=== PATIENT | female | born 2000 | race Caucasian/White ===

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

== ENCOUNTER 2021-02-26 08:26 | Emergency (ER) | payer OTHER ==
[~2021-02-26] VITALS: Ht 167.6 cm; Wt 117.9 kg
== END 2021-02-26 11:25 | disposition home or self-care (01) ==
LOC: EMR PED 08:26
DX: J06.9 Acute upper respiratory infection, unspecified (principal); Z20.822 Contact with and (suspected) exposure to COVID-19

== ENCOUNTER 2022-01-30 18:51 | Emergency (ER) | payer OTHER ==
[~2022-01-30] VITALS: Ht 152.4 cm; Wt 113.4 kg
[2022-01-30] MEDS ORDERED: BACTRIM DS TAB1 EACH PO (22:41)
[2022-01-30] MEDS ORDERED: ONDANSETRON ODT4 MG PO (22:41)
[2022-01-30] MEDS ORDERED: KETO10TA2 PO (22:41)
== END 2022-01-30 23:16 | disposition home or self-care (01) ==
LOC: EMR PED 18:51
DX: N39.0 Urinary tract infection, site not specified (principal)

== ENCOUNTER 2022-02-07 21:53 | Emergency (ER) | payer OTHER ==
[~2022-02-07] VITALS: Ht 170.2 cm; Wt 108.9 kg
[~2022-02-07 21:53] MED LIST changes: +BACTRIM DS TAB1 EACH PO; +KETO10TA2 PO; +ONDANSETRON ODT4 MG PO
== END 2022-02-08 01:03 | disposition home or self-care (01) ==
LOC: ER 21:53 → EMR PED 21:56
DX: N83.202 Unspecified ovarian cyst, left side (principal); Z91.011 Allergy to milk products

== ENCOUNTER 2022-12-21 18:49 | Emergency (ER) | payer OTHER ==
[~2022-12-21] VITALS: Ht 170.2 cm; Wt 117.9 kg
[2022-12-21 21:39] LABS: HEMATOCRIT 40.2 % (36.0-45.00); HEMOGLOBIN 13.4 g/dL (12.0-15.00); MEAN CELL VOLUME 92.5 fL (80.00-100.00); MEAN CORPUSCULAR HEMOGLOBIN 30.8 pg (27.00-32.0); MEAN CORPUSCULAR HGB CONC 33.3 g/dl (32.0-36.0); PLATELET COUNT 239 K/uL (150-450); RED BLOOD COUNT 4.35 M/uL (4.00-6.00); RED CELL DISTRIBUTION WIDTH 13.6 % (11.5-14.5)
[2022-12-21 21:53] LABS: CALCIUM 8.4 mg/dL (8.5-10.1); CREATININE SERUM 0.69 mg/dL (0.55-1.02); GFR 107.4; POTASSIUM 3.47 mEq/L (3.5-5.1)
[2022-12-21 22:18] LABS: PH,URINE 6.5 (5.0-8.0); URINE APPEARANCE Clear; URINE BILIRRUBIN Negative (NEGATIVE); URINE BLOOD Negative; URINE COLOR Yellow; URINE GLUCOSE Negative (NEGATIVE); URINE LEUKOCYTE Moderate; URINE NITRATE Negative; URINE PROTEIN Negative (NEGATIVE)
[2022-12-21 22:22] LABS: URINE BACTERIA 2979.8 uL (0.0-1933); URINE EPITHELIAL CELLS 12.5 uL (0.0-38.8); URINE RBC 5.7 uL (0.0-20.8); URINE WBC 107.6 uL (0.0-23.2)
[2022-12-21] MEDS ORDERED: INTESTINEX680 M1 PO (23:00)
[2022-12-21] MEDS ORDERED: DUI500 PO (23:00)
[2022-12-21] MEDS ORDERED: PEPCID AC20 MG PO (23:00)
== END 2022-12-22 00:04 ==
LOC: ER 19:03
PROVIDERS: Nurse Practitioner Family
DX: N39.0 Urinary tract infection, site not specified (principal); B34.8 Other viral infections of unspecified site

== ENCOUNTER 2023-09-29 18:14 | Emergency (ER) | payer OTHER ==
[~2023-09-29] VITALS: Ht 167.6 cm; Wt 117.9 kg
[~2023-09-29 18:14] MED LIST changes: +CEPHALEXIN750 MG PO; +DOLOGESIC-DF 51 EACH PO; +DUI500 PO; +FLONASE16 GM NASAL; +PEPCID AC20 MG PO; +[UNRECOGNIZED DRUG - OTHER] PO
[2023-09-29] MEDS ORDERED: 0.9 % SODIUM CHLORIDE 1,000 ML IV SCH (19:30)
[2023-09-29] MEDS ORDERED: HYOSCYAMINE SULFATE 0.125 MG TAB.SUBL SL ONE (19:30)
[2023-09-29] MEDS ORDERED: ONDANSETRON 4 MG TAB.RAPDIS PO ONE (19:30)
[2023-09-29] MEDS ORDERED: ONDANSETRON HCL 2 MG/ML VIAL ONE (19:33)
[2023-09-29] MEDS ORDERED: HYOSCYAMINE SULFATE 0.125 MG TAB.SUBL ONE (19:33)
[2023-09-29] MEDS ORDERED: ONDANSETRON HCL 2 MG/ML VIAL IV ONE (19:45)
[2023-09-29 19:56] LABS: HEMATOCRIT 40.4 % (36.0-45.00); HEMOGLOBIN 13.7 g/dL (12.0-15.00); MEAN CELL VOLUME 93.2 fL (80.00-100.00); MEAN CORPUSCULAR HEMOGLOBIN 31.5 pg (27.00-32.0); MEAN CORPUSCULAR HGB CONC 33.8 g/dl (32.0-36.0); PLATELET COUNT 308 K/uL (150-450); RED BLOOD COUNT 4.33 M/uL (4.00-6.00); RED CELL DISTRIBUTION WIDTH 13.7 % (11.5-14.5)
[2023-09-29 20:23] LABS: ALBUMIN 3.9 gm/dL (3.4-5.0); BILIRUBIN TOTAL 0.3 mg/dL (0.3-1.2); CALCIUM 9.3 mg/dL (8.5-10.1); CREATININE SERUM 0.75 mg/dL (0.55-1.02); GFR 96.63; GLOBULINA 3.9 G/DL (2.4-3.5); POTASSIUM 4.03 mEq/L (3.5-5.1); TOTAL PROTEIN 7.8 gm/dL (6.4-8.2)
[2023-09-29 20:39] LABS: PH,URINE 5.5 (5.0-8.0); URINE APPEARANCE Cloudy; URINE BILIRRUBIN Negative (NEGATIVE); URINE BLOOD Negative; URINE COLOR Yellow; URINE GLUCOSE Negative (NEGATIVE); URINE LEUKOCYTE Trace; URINE NITRATE Negative; URINE PROTEIN Negative (NEGATIVE)
[2023-09-29 20:43] LABS: URINE BACTERIA 5146.8 uL (0.0-1933); URINE EPITHELIAL CELLS 68.4 uL (0.0-38.8); URINE RBC 3.8 uL (0.0-20.8); URINE WBC 162.6 uL (0.0-23.2)
== END 2023-09-29 23:57 | disposition home or self-care (01) ==
LOC: ER 18:15
PROVIDERS: Emergency Medicine
DX: K52.89 Other specified noninfective gastroenteritis and colitis (principal); N39.0 Urinary tract infection, site not specified